=== PATIENT | female | born 1990 | race Asian ===

== ENCOUNTER 2016-10-27 19:45 | Inpatient (IN) | payer OTHER ==
[~2016-10-27] VITALS: Ht 160 cm; Wt 78.5 kg
[2016-10-27] MEDS ORDERED: Lactated Ringer's 1,000 ML IV PRN (20:08)
[2016-10-27] MEDS ORDERED: Carboprost 250 mCg/mL Inj IM PRN (20:10)
[2016-10-27] MEDS ORDERED: Oxytocin 10 Unit/mL Inj IM PRN (20:10)
[2016-10-27] MEDS ORDERED: Methylergonovine 0.2 mg/mL Inj IM PRN (20:10)
[2016-10-27] MEDS ORDERED: Hemorrhage Kit, Post Partum XX ONE (20:10)
[2016-10-27] MEDS ORDERED: Sodium Chloride LOK Flush 10 mL Syringe IVFLUSH PRN (20:10)
[2016-10-27] MEDS ORDERED: Oxytocin 30 Units/500 mL LR 30 UNITS in IV Premix 1 EACH IV PRN (20:10)
[2016-10-27] MEDS ORDERED: fentaNYL 2 mCg/mL-Bupivicaine 0.125% 100 mL Premix EPIDURAL ONE (21:24)
[2016-10-27] MEDS ORDERED: fentaNYL 2 mCg/mL-Bupiv 0.125% 100 ML EPIDURAL SCH (21:55)
[2016-10-27] MEDS ORDERED: Ondansetron 2 mg/mL 2 mL Inj IVPUSH PRN (21:55)
[2016-10-27] MEDS ORDERED: Lactated Ringer's 500 ML IV ONE (21:55)
[2016-10-27] MEDS ORDERED: EPHEDrine Sulfate 50 mg/mL Inj IVPUSH PRN (21:55)
[2016-10-27] MEDS ORDERED: Atropine 1 mg/10 mL (Code) Syringe IVPUSH PRN (21:55)
[2016-10-27] MEDS: Lactated Ringer's 1,000 ML IV SCH (21:55)
--- NOTE | 2016-10-27 21:55 | PCM.HPANE ---
Patient Data Date of Service: Oct 27, 2016 Surgeon Admitting Provider:Heladio Chaparro MD Attending Provider:Heladio Chaparro MD Primary Care Physician:Nopcp Other Provider: Reason for Visit Active Labor ACTIVE LABOR Ht/WT & BMI Height (Feet): 5 Height (Inches): 3 Body Mass Index Allergies Coded Allergies: No Known Allergies (Unverified , 10/27/16) Past Anesthesia History Anesthesia History: Denies:: Abnormal Airway, Anesthesia Reactions, Difficult Intubation, Fam Anesthesia Reaction, Fam Malignant Hypertherm, Malignant Hyperthermia Diabetes History Hx Diabetes?: No MRSA MRSA: No History History of ENT Problems?: No HEENT History: Denies:: Abnormal Airway Cataracts Difficult Intubation Dysphagia Glaucoma Hearing Problem Sinus Problem TMJ Denture Type: None Teeth Condition: Within Normal Limits Hx of Heart Problems?: No Cardiovascular History: Denies:: AICD Abdominal Aortic Aneurism Atrial Fibrillation Cardiac Surgery Chest Pain Congestive Heart Failure Coronary Artery Disease Edema Heart Murmur Hypertension Irregular Heartbeat Pacemaker Peripheral Vascular Rheumatic Fever Thrombophlebitis Valvular Heart Disease Hx of Respiratory Problem?: No Respiratory History: Denies:: Asthma COPD Chest Surgery Cough Dyspnea Emphysema Hemoptysis Oxygen Administration Pneumonia Pulmonary Embolism Tuberculosis Use of C-PAP Machine Use of Inhalers / NEBS Hx Neurologic Problems?: No Neurological History: Denies:: Alzheimer's Disease CVA Dementia Dizziness Headaches Multiple Sclerosis Parkinson's Disease Peripheral Neuropathy Seizures TIA Hx of GI Problems?: No Hx of Problems?: No HX of Peritoneal Dialysis: No Female Hx: Positive for:: Currently Skin History: Denies:: History Skin Disorders? Pressure Ulcers Hx Musculoskeletal Problems?: No Hx of Psycho/Social Problems?: No Hx Surgeries?: No Hx Any Other Health Problems?: No Hx Diabetes: No Smoking Status: Never Smoker Stop/Bang Treated for Sleep Apnea?: No Do You Have a CPAP Machine?: No JOSUE Risk Assessment: Low Risk, <3 Yes Risk Assessment Category Category 1A: Patient has history of documented sleep apnea, and HAS NOT received any narcotic, sedative or anesthesia administration during this stay. Category 1B: Patient has history of documented sleep apnea, and HAS received any narcotic , sedative or anesthesia administration during this stay Category 2: Patient has SUSPECTED Obstructive Sleep Apnea, and HAS received any narcotic , sedative or anesthesia administration during this stay. Category 3: Patient has SUSPECTED Obstructive Sleep Apnea and HAS NOT received narcotic, sedative or anesthesia administration during this stay. Category 4: Outpatient in Procedural Areas with known sleep apnea or who screen positive for High Risk via the STOP/BANG questionnaire. Exam Exam General Appearance: Alert, Oriented X3, Cooperative, Moderate Distress HEENT/AIRWAY: MP 2 Heart: Exam Unremarkable Plan Impression Patient chart reviewed, patient interviewed and anesthestic plan with risks, benefits, and alternatives discussed, and informed consent obtained. NPO per Anesth. Guidelines: Yes ASA Physical Status: ASA1 Normal Healthy Anesthetic Plan: Epidural Bene/Risks/Altern/Consents: Yes HP Complete Prior to Induction: Yes Krish Lowery MD Oct 27, 2016 21:55
[2016-10-27 22:18] LABS: Mean Corpuscular Hemoglobin 26.7 pg (27.0-35.0)
[2016-10-28] MEDS: Lactated Ringer's 1,000 ML IV SCH ×6 (03:18→21:55)
[2016-10-28] MEDS ORDERED: Carboprost 250 mCg/mL Inj IM PRN (03:20)
[2016-10-28] MEDS ORDERED: Hemorrhage Kit, Post Partum XX ONE (03:20)
[2016-10-28] MEDS ORDERED: Methylergonovine 0.2 mg/mL Inj IM PRN (03:20)
[2016-10-28] MEDS ORDERED: HYDROcodone-APAP 5-325 mg Tablet PO PRN (03:20)
[2016-10-28] MEDS ORDERED: Oxytocin 10 Unit/mL Inj IM PRN (03:20)
[2016-10-28] MEDS ORDERED: Oxytocin 30 Units/500 mL LR 30 UNITS in IV Premix 1 EACH IV PRN (03:20)
--- NOTE | 2016-10-28 03:37 | PCM.HPOB ---
Subjective Date of Service: Oct 27, 2016 Referring Provider: Admitting Physician: Heladio Chaparro MD Primary Care Physician: Nopmarycarmen Attending Physician: Heladio Chaparro MD Chief Complaint Labor History of Present History of Present Illness 26 y/o -0-1-0 at 39 weeks gestation with an SANDY of 10/31/2016 who was seen in triage earlier today for early labor and sent home at 3cm without cervical change. The patient reports contractions continued to increase and were stronger and more frequent so she returned for evaluation. On exam in triage she was found to be 5cm and active labor. No Leakage of fluid, good movement. Her is complicated by hypothyroidism which has been controlled with 75mcg of levothryoxine daily. GBS is negative. Obstetrical Complications: Other (Hypothyroidism) Past Medical History Obstetrical History: 1. SAB Gynecologic History: None Medical History: Hypothyroidism Surgical History: none Hx Tobacco Use: No Hx Alcohol Use: No Hx Substance Use: No Past Family History Living Arrangement: with Family Genetic Screening/Counseling Genetic Screening/Counseling: Negative Baby father-had child w defect: No Medications Home medications Levothyroxine 75mcg daily Allergy Coded Allergies: No Known Allergies (Unverified , 10/27/16) Exam Vital Signs Reviewed and stable Exam Category I FHT Constitutional: Well-developed, Well-nourished Heart: Exam Unremarkable Additional Information 5cm dilated, vertex Labs/Diagnostics Labs Laboratory Tests Test 10/27/16 21:00 White Blood Count 11.1th/mm3 (3.8-10.1) Red Blood Count 4.54mil/mm3 (3.90-5.20) Hemoglobin 12.1g/dL (12.0-15.6) Hematocrit 37.3% (35.0-46.0) Mean Corpuscular Volume 82fL (81-100) Mean Corpuscular Hemoglobin 26.7pg (27.0-35.0) Mean Corpuscular Hemoglobin Concent 32.4% (32.0-37.0) Red Cell Distribution Width 14.3% (12.3-15.4) Platelet Count 170bil/L (150-400) Maternal Blood Type: B (Positive) Hx Rho(D) Immune Globulin: No Group B Strep Results: Negative Rubella: Immune Additional Information HIV negative, Hep B sAg neg OB Intrapartum Assessment/Plan Problems: (1) 39 weeks gestation of Status: Acute ICD Code: Z3A.39 (2) Active labor at term Plan: Admit for labor management. Anticipate Status: Acute ICD Code: [id number] Heladio Chaparro MD Oct 28, 2016 03:37
--- NOTE | 2016-10-28 06:09 | PCM.OBVAG ---
Vaginal Delivery Date of Service Oct 28, 2016 Pre Operative Diagnosis Pre Operative Diagnosis 39 week gestation vaginal delivery Post Operative Diagnosis Post Operative Diagnosis vaginal delivery Procedure Obstetical Procedure: Normal Spontaneous Vaginal Delivery, Repair of Perineal Tear (2nd degree) Insurance Examiner/Hospice Office Coordinator Provider and Hospice Office Coordinator: Dr Palacios Assist Dr Calvert Indication for Procedure Induction: Active labor, SROM, Progressed normally through labor Findings Obstetrical Findings: (Female), Cord (3 Vessel), Weight ( 3065grams), Presentation (JERI), 1 minute (9), 5 minutes (9), Placenta (Intact/Normal), Perineal Laceration (2nd degree) Analgesia/Medications Obstetrical Anesthesia: Epidural Procedure Details Procedure Details History of Present Illness 26 y/o -0-1-0 at 39 weeks gestation with an SANDY of 10/31/2016 who was seen in triage earlier today for early labor and sent home at 3cm without cervical change. The patient reports contractions continued to increase and were stronger and more frequent so she returned for evaluation. On exam in triage she was found to be 5cm and active labor. She progressed through labor without incident. She was found to be complete at 23:08. She began pushing at 23:35 and she had SROM at 2355. Procedure: A sterile drape was then placed under the patient's buttocks and with expulsive efforts, she delivered head over an intact perineum. No nuchal cord was noted. The rest of the body was delivered. The baby was placed on maternal abdomen, skin to skin. Warming and stimulating maneuvers were applied. After a minute, the cord was clamped, and cut. The infant was delivered at 02:28. The umbilical cord did avulse so manual extraction of the placenta was done at bedside and the placenta was extracted intact at 0233. Uterus firmed with manual external massage. The perineum was examined and there was a 2nd degree tear which was repaired with 0-0 vicryl in the usual fashion. Sponge and instrument counts were correct x2 at the close of the procedure. The patient and infant tolerated the procedure well and pt is stable in her room. Specimen Specimens: Placenta (disposal) IV Intake/Output Catheters: None Blood Loss & Administration Estimated Blood Loss: 300 Blood Admin during procedure: No Post Procedure Plan Post Procedure Plan - routine care Post delivery Condition: Mom stable, Baby stable to nursery Attending Statement I was present for the entire procedure and assisted Dr. Calvert as needed and agree with the above documentation with changes. Carola Calvert DO Oct 28, 2016 06:04 Heladio Chaparro MD Nov 02, 2016 19:25
[2016-10-28] MEDS: Benzocaine (Dermoplast) 20% 60 Gm Spray TOPICAL PRN ×2 (06:26→19:52)
[2016-10-28] MEDS: Witch Hazel-Glycerin Pads TOPICAL PRN ×2 (06:26→19:52)
[2016-10-28] MEDS: LANOlin HPA 7 Gm Ointment TOPICAL PRN (06:26)
[2016-10-28] MEDS: Ascorbic Acid 500 mg Tablet PO SCH ×2 (08:09→19:52)
--- NOTE | 2016-10-28 12:03 | PCM.ANEP1 ---
Post Anesthesia PACU Phase 1 Assessment Date of Service: Oct 28, 2016 Anesthetic Administered: Epidural Level of Alertness: Awake, talking PHELPS's with Equal Strength: Yes Pain: No Nausea or Vomiting: No CV Function & Hydration Stable: Yes Airway Device: Oxygen Delivery: Room Air Lungs: Normal Air Movement Dermatome Level: Full Sensation PACU Phase 2 Assessment Complications: Yes Follow up Care: N/A Patient Instructions Provided: N/A Jeff Saba MD Oct 28, 2016 12:03
[2016-10-29 06:46] LABS: Mean Corpuscular Hemoglobin 27.4 pg (27.0-35.0); Mean Corpuscular Volume 84.2 fL (81-100)
[2016-10-29] MEDS ORDERED: IBUP800T28 PO (07:05)
[2016-10-29] MEDS ORDERED: DOCU-41 PO (07:05)
[2016-10-29] MEDS ORDERED: FERR-74 PO (07:05)
--- NOTE | 2016-10-29 07:09 | PCM.DIOB ---
Obstetrical Disch Instruction Date of Service: Oct 29, 2016 Dates of Hospitalization Date of Hospital Admission Oct 27, 2016 at 20:00 Providers Admitting Physician: Heladio Chaparro MD Primary Care Physician: Khushbu Attending Physician: Heladio Chaparro MD Discharge Diagnosis Discharge Diagnosis Problems: (1) 39 weeks gestation of Status: Resolved ICD Code: Z3A.39 (2) Active labor at term Status: Resolved ICD Code: [id number] Diet Discharge Diet: No restrictions Activity Discharge Activity-General: Pelvic Rest for 6 weeks, Be up and about, Balance rest and activity, Activity as pain allows, No lifting >15 pounds for 2 weeks Additional Instructions Discharge Instructions Please take the iron pills with orange juice or vitamin c for your anemia. The iron can give you constipation so you have also been given a prescription for a stool softener to prevent constipation. Please take it as prescribed If your pain is not severe, you should only use Ibuprofen for pain control. Be sure to follow up in 6 weeks at [facility]. Pelvic rest for 6 weeks (nothing per vagina including intercourse, tampons) If you have a fever greater than 100.4, please call [facility]. There is always a nurse or provider vice president of communications to talk to. If you have an increase in bleeding, call [facility]. If you have a lot of bleeding suddenly, especially if you have symptoms of dizziness & weakness with it, get emergency help. If you noticed any swelling and pain in your arms or legs, please call the doctor immediately or go to the ER for evaluation. If you start experiencing depression, especially if you feel that you are a danger to yourself or your family, seek emergency help. You have been through a lot -- BE SURE TO TAKE CARE OF YOURSELF. Follow Up Plan Follow-up Provider (F9): Heladio Chaparro MD Follow-up appointment: Weeks (6) Call your provider for: Fever or Chills, Shortness of breath, Heavy vaginal bleeding, Red painful breasts Marcos Matias DO Oct 29, 2016 07:09
--- NOTE | 2016-10-29 07:56 | PCM.DC.OB ---
Obstetrical Discharge Summary Date of Service Oct 29, 2016 Date of hospital admission Oct 27, 2016 at 20:00 Date of Discharge: Oct 29, 2016 Providers Admitting Physician: Heladio Chaparro MD Primary Care Physician: Nopmarycarmen Attending Physician: Heladio Chaparro MD Diagnosis at Time of Discharge Problems: (1) 39 weeks gestation of Status: Resolved ICD Code: Z3A.39 (2) Active labor at term Status: Resolved ICD Code: [id number] Invasive procedures Procedure Obstetical Procedure: Normal Spontaneous Vaginal Delivery, Repair of Perineal Tear (2nd degree) Bulk Station Operator/Bi Specialist Provider and Bi Specialist: Dr Palacios Assist Dr Calvert Indication for Procedure Induction: Active labor, SROM, Progressed normally through labor Findings Obstetrical Findings: (Female), Cord (3 Vessel), Presentation (JERI), 1 minute (9), 5 minutes (9), Placenta (Intact/Normal), Perineal Laceration (2nd degree) Analgesia/Medications Obstetrical Anesthesia: Epidural Procedure Details Procedure Details History of Present Illness 26 y/o -0-1-0 at 39 weeks gestation with an SANDY of 10/31/2016 who was seen in triage earlier today for early labor and sent home at 3cm without cervical change. The patient reports contractions continued to increase and were stronger and more frequent so she returned for evaluation. On exam in triage she was found to be 5cm and active labor. She progressed through labor without incident. She was found to be complete at 23:08. She began pushing at 23:35 and she had SROM at 2355. Procedure: A sterile drape was then placed under the patient's buttocks and with expulsive efforts, she delivered head over an intact perineum. No nuchal cord was noted. The rest of the body was delivered. The baby was placed on maternal abdomen, skin to skin. Warming and stimulating maneuvers were applied. After a minute, the cord was clamped, and cut. The infant was delivered at 02:28. The umbilical cord did avulse so manual extraction of the placenta was done at bedside and the placenta was extracted intact at 0233. Uterus firmed with manual external massage. The perineum was examined and there was a 2nd degree tear which was repaired with 0-0 vicryl in the usual fashion. Sponge and instrument counts were correct x2 at the close of the procedure. The patient and infant tolerated the procedure well and pt is stable in her room. Brief History and Physical: 26 y/o -0-1-0 at 39 weeks gestation with an SANDY of 10/31/2016 who was seen in triage earlier today for early labor and sent home at 3cm without cervical change. The patient reports contractions continued to increase and were stronger and more frequent so she returned for evaluation. On exam in triage she was found to be 5cm and active labor. No Leakage of fluid, good movement. Her is complicated by hypothyroidism which has been controlled with 75mcg of levothryoxine daily. GBS is negative. Hospital Course: 22-year-old now who presented at 39 weeks GA for active labor. She made normal progress through labor and delivered a healthy female vaginally with Apgars of 9 and 9. , she progressed well. She was able to tolerate oral intake, ambulating independently, her pain was well-controlled, and she was urinating and passing flatus without difficulty. She did see the nurse for extra assistance with breast-feeding, which she was performing well. Her vital signs and lab work were all stable. She was given instructions, education, follow-up at the clinic, and was discharged in good condition. Docusate Sodium (Colace) 100 Mg Capsule 100 MG PO BID Prescribed by: KELSEY JERNIGAN DO Ferrous Sulfate (Feosol) 325 Mg Tablet 325 MG PO DAILYWM Prescribed by: KELSEY JERNIGAN DO Ibuprofen (Ibuprofen) 800 Mg Tablet 800 MG PO Q6H PRN PRN For Pain Prescribed by: KELSEY JERNIGAN DO Disposition Home Follow-up plan 6 weeks [facility] Discharge Activity-General: Pelvic Rest for 6 weeks, Balance rest and activity , Activity as pain allows, No lifting >15 pounds for 2 weeks Attending Statement: The patient was seen and examined together with Dr.Hong Polly MADRIGAL on 10/29/2016 and I agree with the history, exam and plan as outlined in the note above. copies to: Heladio Chaparro MD, Hong D DO Oct 29, 2016 07:56 Heladio Chaparro MD Nov 02, 2016 19:28
[2016-10-29] MEDS: Ascorbic Acid 500 mg Tablet PO SCH (10:27)
[2016-10-29] MEDS: LANOlin HPA 7 Gm Ointment TOPICAL PRN (14:38)
[2016-10-29 17:36] VITALS: BP 99/57; PULSE 74; RESP 20
== END 2016-10-29 18:05 | disposition home or self-care (01) | DRG 775 ==
LOC: FBCO 19:45 → FBC 20:00
PROVIDERS: ADMIT Obstetrics & Gynecology; ATTEND Obstetrics & Gynecology
PROC: 10E0XZZ Delivery of Products of Conception, External Approach (ICD-10-PCS; principal; 2016-10-28)
PROC: 0KQM0ZZ Repair Perineum Muscle, Open Approach (ICD-10-PCS; 2016-10-28)
DX: O70.1 Second degree perineal laceration during delivery (principal); Z37.0 Single live birth; Z3A.39 39 weeks gestation of pregnancy